=== PATIENT | female | born 1995 | race Two or more races ===

== ENCOUNTER → 2016-06-28 | Outpatient (REF) | payer OTHER | LOC: M SFHCLERA 20:59 | PROVIDERS: ATTEND Nurse Practitioner Family | DX: R50.9 Fever, unspecified (principal) ==

== ENCOUNTER → 2017-10-29 | Outpatient (REF) | payer OTHER | LOC: M SFHCLERA 12:40 | DX: J02.9 Acute pharyngitis, unspecified (principal) ==